=== PATIENT | female | born 1995 | race Caucasian/White ===

== ENCOUNTER 2022-09-07 13:16 | Inpatient (IN) ==
[2022-09-07] MEDS ORDERED: LIDOCAINE 1% LOCAL 20 ML VIAL INFIL PRN (13:27)
[2022-09-07] MEDS ORDERED: OXYTOCIN 30 UNITS/500 ML BAG IV PRN ×2 (13:27→17:09)
[2022-09-07] MEDS ORDERED: ceFAZolin 2000MG 2,000 MG/15 ML SYR IV ONE (13:45)
--- NOTE | 2022-09-07 14:08 | History & Physical Report ---
Date of Service September 07, 2022 Assessment & Plan (1) Supervision of normal intrauterine in primigravida: Plan: IUP at term in active labor GBS (+) and PCN allergic (rash) will treat with Ancef for GBS prophylaxis epidural when requested anticipate vaginal Admission and Anticipated Discharge Date Admission Date: September 07, 2022 History of Present Illness Primary Care Provider: NO PCP Patient is a 26 yo female EDC 09/08/22 who presents at 39 6/7 weeks in active labor. (-) SPROM, contractions are getting stronger. GBS (+). otherwise uncomplicated. Allergies Allergy/AdvReac Type Severity Reaction Status Date / Time amoxicillin Allergy Mild Rash Verified 09/07/22 12:55 Home Medications Medication Instructions Recorded Confirmed Type prenat.vits,agustín,rbj-[id number]-hpddy 1 tab PO DAILY 01/26/22 09/07/22 History Patient History Medical History Pelvis fracture at 13 years old on the dance team Surgical History S/P tonsillectomy Family History Grandfather (Maternal) Alzheimer disease Social History Smoking Status: Never smoker Hx Alcohol Use: No Hx Substance Use: No Preferred Language: [place] Communication Ability: Effective Director Project Management Required: No Beliefs That Will Affect Care: None marital status: marital status details: Kenneth (30) [phone] Current Living Situation: Spouse Current Living Situation Comment: lives with spouse, 2 dogs. current occupational status: employed current occupation: Teacher Other Information That Helps Us Care for You: No Assistive Devices: None Review of Systems All systems reviewed & are unremarkable except as noted in HPI & below Physical Exam Constitutional: WD/WN, vitals as above Psychiatric: A+Ox3, euthymic affect Genitourinary: OB Exam Abdomen: + vertex and + regular contractions ( Q4-5 minutes moderated) Manual OB Exam: + cervical dilation 6 cm, + cervical effacement 100% and + station 0 OB Exam Monitor Tracing: + external FHT monitor used, + external uterine monitor used, + category I and + normal FHT variability Results & Data Vital Signs (Past 12 Hours) Vital Signs Temp Pulse Resp BP 09/07/22 13:38 98.2 F 20 09/07/22 13:41 83 138/87 09/07/22 13:25 83 141/87 H Code Status & VTE Plan VTE Prophylaxis Plan VTE Prophylaxis will be ordered: No Coding Level of Care Code None Diagnoses Supervision of normal intrauterine in primigravida Z34.00
[2022-09-07] MEDS: LACTATED RINGER'S 1,000 ML IV PRN ×2 (14:14→16:54)
[2022-09-07] MEDS ORDERED: SODIUM CHLORIDE 0.9% PF INJ 10 ML VIAL ONE (14:20)
[2022-09-07] MEDS ORDERED: LIDOCAINE 2%/EPINEPHRINE 1:200,000 20 ML PF ONE (14:20)
[2022-09-07] MEDS ORDERED: BUPIVACAINE 0.25% PF 30 ML VIAL ONE (14:20)
[2022-09-07] MEDS ORDERED: fentaNYL citrate PF 100 MCG/2 ML VIAL ONE (14:20)
[2022-09-07] MEDS ORDERED: ePHEDrine sulfate 50 MG/ML AMP ONE (14:20)
[2022-09-07] MEDS ORDERED: fentaNYL 2MCG/ML ROPIVACAINE 1.25MG/ML 100 ML BAG EPI ONE (14:21)
[2022-09-07 14:35] LABS: Hematocrit (blood only) 30.7 % (37.0-47.0); Hemoglobin 9.9 g/dl (12.0-16.0); Mean Corpuscular Hemoglobin 28.2 pg (25.0-34.0); Mean Corpuscular Hgb Conc 32.2 g/dL (32.0-36.0); Mean Corpuscular Volume 87.5 fL (80.0-100.0); Mean Platelet Volume 12.2 fL (9.4-12.4); Platelet Count 132 K/uL (130-400); RDW Standard Deviation 44.4 fL (36.4-46.3); Red Blood Count 3.51 M/uL (4.20-5.40); White Blood Count 9.87 K/ul (4.8-10.8)
[2022-09-07] MEDS ORDERED: fentaNYL 2MCG/ML ROPIVACAINE 1.25MG/ML 100 ML BAG EPI PRN (16:33)
[2022-09-07] MEDS ORDERED: NALOXONE HCL 0.4 MG/1 ML VIAL/CARP IV PRN (16:33)
[2022-09-07] MEDS ORDERED: NALBUPHINE HCL INJ 10 MG/ML AMP IV PRN (16:33)
[2022-09-07] MEDS ORDERED: diphenhydrAMINE 50 MG/ML VIAL IV PRN (16:33)
[2022-09-07] MEDS ORDERED: PROMETHAZINE HCL 6.25 MG in SODIUM CHLORIDE 0.9% 50 ML IV PRN (16:33)
[2022-09-07] MEDS ORDERED: NALOXONE HCL 1 MG in SODIUM CHLORIDE 0.9% 1000ML 1,000 ML IV PRN (16:33)
[2022-09-07] MEDS ORDERED: ONDANSETRON INJ 2 MG/ML 2 ML VIAL IV PRN (16:33)
[2022-09-07] MEDS ORDERED: ePHEDrine sulfate 50 MG/ML AMP IV PRN (16:33)
--- NOTE | 2022-09-07 16:33 | Anesthesiology Consultation ---
Date of Service September 07, 2022 Assessment & Plan Chart Review Chart Review: Patient NOT seen in Pre Admission Testing and Acceptable Risk for Labor Epidural Consults Requested none ASA ASA2 Proposed Anesthesia Anesthesia Type: Labor Epidural Risk / Benefits Reviewed With: PT / POA / Parent / Guardian, Accepts Plan and Informed Consent Obtained History Height/Weight Height: 5 ft 7 in Weight: 81.193 kg Allergies Allergy/AdvReac Type Severity Reaction Status Date / Time amoxicillin Allergy Mild Rash Verified 09/07/22 12:55 Medications Home Medications Medication Instructions Recorded Confirmed Last Taken prenat.vits,agustín,yvg-ylzl-ssfkv 1 tab PO DAILY 01/26/22 09/07/22 09/06/22 22:00 Active Medications Generic Name Dose Route Start Last Admin Trade Name Freq PRN Reason Stop Dose Admin Lactated Ringer's 1,000 mls @ 125 mls/hr 09/07/22 13:27 09/07/22 15:10 Lr IV 09/09/22 13:26 125 mls/hr .Q8H PRN Infusion L&D Protocol Protocol Past Medical History Medical History Pelvis fracture at 13 years old on the dance team Exercise / Class Metabolic Activity II 4-5 Yardwork/Stairs/Walk up hill Past Family History Family History Grandfather (Maternal) Alzheimer disease Past Surgical History Surgical History S/P tonsillectomy Past Anesthesia History No Hx of Anesthesia Complications and No Family Hx of Anesthesia Complications History of PONV No Hx of PONV and No Hx of Motion Sickness Social History Smoking Status: Never smoker Hx Alcohol Use: No Hx Substance Use: No Physical Exam Vital Signs Last Vital Signs Temp 36.7 C 09/07/22 15:00 Pulse 85 09/07/22 16:28 Resp 18 09/07/22 15:10 BP 133/72 09/07/22 16:20 Pulse Ox 98 09/07/22 16:28 ENMT Mouth: no dentition abnormality Thyromental Distance: > or= 3.5 Finger Breadths Mallampati Class: II Neck normal visual inspection Respiratory normal respiratory effort Auscultation: lungs clear to auscultation bilaterally Cardiovascular Rate/Rhythm: regular rate and regular rhythm Psychiatric Orientation: alert Testing Laboratory Results 09/07/22 14:04
[2022-09-07] MEDS ORDERED: NURSING L&D Epidural Breakthrough Pain Update ONE (22:08)
[2022-09-07] MEDS ORDERED: ceFAZolin 1000MG 1,000 MG/7.5 ML SYR IV PRN (22:15)
[2022-09-08] MEDS ORDERED: LIDOCAINE 2% MPF LOCAL 5 ML VIAL ONE (00:22)
[2022-09-08] MEDS: LACTATED RINGER'S 1,000 ML IV PRN (00:26)
[2022-09-08] MEDS ORDERED: OXYTOCIN 30 UNITS/500 ML BAG IV PRN (04:54)
[2022-09-08] MEDS ORDERED: DIPHTHERIA/TETANUS/PERTUSSIS 0.5mL SYR/VIAL (Age 7+yrs) IM ONE (04:54)
[2022-09-08] MEDS ORDERED: BENZOCAINE 20% AER SPR 82.5 GM CAN EXT PRN (04:54)
[2022-09-08] MEDS ORDERED: HYDROCORTISONE ACETATE 25 MG SUPP PR PRN (04:54)
[2022-09-08] MEDS ORDERED: oxyCODONE/ACETAMINOPHEN 5mg/325mg TAB PO PRN (04:54)
[2022-09-08] MEDS ORDERED: miSOPROStoL 200 MCG TAB PR ONE (04:54)
--- NOTE | 2022-09-08 05:04 | Delivery Summary ---
Vaginal Delivery Summary Date of Service September 08, 2022 Vaginal Delivery Summary VAVD and 1st Degree LAC Patient is a 26-year-old 1 P0 female EDC 09/08/2022 who presented in active labor. She received effective epidural analgesia and shortly after, membranes ruptured spontaneously for thin meconium stained fluid. She did require Pitocin augmentation of her labor. She progressed to full dilation with the urge to push. She was pushing effectively but after 2-1/2 hours she was no longer making significant progress because of maternal exhaustion. The vertex was now at +2 station with caput. Vacuum assistance was offered to the patient and she accepted. After bladder was emptied using sterile technique for small amount of urine, the vacuum was applied through 3 contractions at which time the vacuum popped off. The head was at this point , and she pushed through several more contractions prior to reapplying the vacuum. Through 1 contraction the head was delivered in the occiput anterior presentation. The rest of the then delivered easily without maternal effort. The female infant was then placed on the mother's abdomen for further attention and drying. She was vigorous and moving all 4 limbs. After 1 minute the cord was clamped and cut. After cord blood was obtained, the placenta was expressed intact with a three-vessel cord. bleeding was controlled with fundal massage and dilute Pitocin. However there continued a steady trickle of bleeding and 800 mcg of Cytotec were placed rectally. At this point the bleeding was minimal. A first-degree vaginal laceration was repaired with 3-0 chromic in the usual fashion. Bilateral labial abrasions were not bleeding and therefore not repaired. Estimated blood loss was 650 cc. Mother and infant were doing well after delivery. [facility] [place] Vaginal Delivery Charge Delivery Type Details: VAVD and 1st Degree LAC
[2022-09-08 07:26] LABS: Hematocrit (blood only) 24.7 % (37.0-47.0); Hemoglobin 8.1 g/dl (12.0-16.0)
--- NOTE | 2022-09-08 07:52 | Anesthesia Procedure Note ---
Date of Service September 08, 2022 Anesthesia Post Epidural Note Vital Signs Vital Signs: Temp Pulse Resp BP Pulse Ox 36.9 C 93 H 20 118/64 93 09/08/22 07:15 09/08/22 07:17 09/08/22 07:15 09/08/22 07:17 09/08/22 04:26 Pain Intensity Bilateral Abdomen: Pain Intensity: 8 Notes Mental Status: alert / awake / arousable and participated in evaluation Nausea / Vomiting: adequately controlled Pain: adequately controlled Airway Patency, RR, SpO2: stable & adequate BP & HR: stable & adequate Hydration State: stable & adequate Neuraxial Anesthesia: was administered and sensory block is resolving Anesthetic Complications: no major complications apparent and Pt Satisfied with anesthetic care Epidural: Removed without complications and With tip intact
[2022-09-08] MEDS: DOCUSATE SODIUM 100 MG CAP PO SCH ×2 (10:07→20:37)
[2022-09-08] MEDS: IBUPROFEN 600 MG TAB PO PRN ×2 (10:07→17:00)
[2022-09-08] MEDS: PRENATAL VITAMIN 1 TAB PO SCH (10:07)
[2022-09-08] MEDS: FERROUS SULFATE 325 MG TAB PO SCH (10:07)
[2022-09-08] MEDS: ACETAMINOPHEN 325 MG TAB PO PRN ×2 (13:15→20:36)
[2022-09-09] MEDS: IBUPROFEN 600 MG TAB PO PRN ×3 (05:30→16:56)
--- NOTE | 2022-09-09 05:47 | Obstetrical Progress Note ---
Date of Service <Rafaela HuiDO - Last Filed: 09/09/22 06:34> September 09, 2022 Assessment & Plan <Rafaela HuiDO - Last Filed: 09/09/22 06:34> (1) Status post vaginal delivery: Feels well today. Eating well, voiding well, ambulating well. - Routine care -- OOB, ambulation, diet progression as tolerated - After discharge will have 6 week follow-up - repeat hemoglobin 09/09= 6.5 <Maame Miller MD, FACOG - Last Filed: 09/09/22 07:16> (1) Status post vaginal delivery: Subjective <Rafaela HuiDO - Last Filed: 09/09/22 06:34> Fadumo is a 26 y/o female who is now PPD # 1 following vaginal delivery at 40 weeks. Reports feeling well overall this morning. Mild abdominal cramping, pain well managed on analgesics. Voiding. Tolerating meals overnight and able to ambulate some. Some persistent lochia with some improvement this morning. Breast feeding. States that she had one episode of lightheadedness while she was up walking yes terday evening, has been feeling ok since. Review of Systems Denies fever, chills, sweats Denies shortness of breath, difficulty breathing, chest pain, palpitations, chest pressure. Denies breast pain. Denies dysuria. Denies headache or changes in vision. Physical Exam <Rafaela HuiDO - Last Filed: 09/09/22 06:34> General: Alert, oriented. No acute distress. Cardiac: Regular rate and rhythm, no murmurs/rubs/gallops. Respiratory: Clear to auscultation bilaterally a/p, no wheezes/rales/rhonchi. No increased work of breathing. Symmetrical chest rise. No respiratory distress. Abdomen: Soft, nontender, nondistended. Uterus: Uterine fundus firm, palpable 2 cm below umbilicus. Lower Extremities: No lower extremity edema or swelling. No deep calf pain. Results & Data <Rafaela HuiDO - Last Filed: 09/09/22 06:34> Vital Signs (Past 12 Hours) Vital Signs Temp Pulse Resp BP Pulse Ox O2 Del Method 09/09/22 03:00 36.9 C 89 18 123/74 Room Air 03/29/23 23:00 37.5 C 89 18 119/76 Room Air 09/08/22 19:40 36.8 C 90 18 136/77 Room Air 09/08/22 18:30 37.4 C 90 16 121/72 98 Room Air <Maame Miller MD, FACOG - Last Filed: 09/09/22 07:16> Co-Signing Physician Notes Resident Physician Supervision Note: I interviewed and examined the patient. Discussed with Dr. Hui and agree with findings and plan as documented in the note. Any exceptions or clarifications are listed here: Doing well overall. However, her hgb this am is 6.5. Patient did minimal ambulating yesterday. After her shower, she felt a little tired. She notes she has not felt dizzy or lightheaded. Encouraged ambulation today and will see if she tolerates or needs transfusion. Probable d/c tomorrow. Documented By: Maame Miller MD, FACOG Resident Activity Tracking <Rafaela Hui, DO - Last Filed: 09/09/22 06:34> Resident Involvement: Resident Care Provided Care Provided: OB Delivery (post )
[2022-09-09 06:32] LABS: Hematocrit (blood only) 19.8 % (37.0-47.0); Hemoglobin 6.5 g/dl (12.0-16.0); Mean Corpuscular Hemoglobin 28.5 pg (25.0-34.0); Mean Corpuscular Hgb Conc 32.8 g/dL (32.0-36.0); Mean Corpuscular Volume 86.8 fL (80.0-100.0); Platelet Count 110 K/uL (130-400); RDW Coefficient of Variation 14.5 % (11.5-14.5); RDW Standard Deviation 45.4 fL (36.4-46.3); Red Blood Count 2.28 M/uL (4.20-5.40); White Blood Count 14.06 K/ul (4.8-10.8)
[2022-09-09] MEDS: PRENATAL VITAMIN 1 TAB PO SCH (09:37)
[2022-09-09] MEDS: FERROUS SULFATE 325 MG TAB PO SCH (09:38)
[2022-09-09] MEDS: DOCUSATE SODIUM 100 MG CAP PO SCH ×2 (09:38→22:11)
[2022-09-09] MEDS ORDERED: bisacodyL 5 MG TABEC PO SCH (20:00)
[2022-09-10] MEDS ORDERED: bisacodyL 10 MG SUPP PR PRN (04:54)
--- NOTE | 2022-09-10 05:18 | Obstetrical Progress Note ---
Date of Service <Rafaela HuiDO - Last Filed: 09/10/22 06:20> September 10, 2022 Assessment & Plan <Rafaela HuiDO - Last Filed: 09/10/22 06:20> (1) Status post vaginal delivery: Feels well today. Eating well, voiding well, ambulating well. - Routine care --OOB, ambulation, diet progression as tolerated - After discharge will have 6 week follow-up -Hemoglobin= 6.5 yesterday; repeat pending <Ansley eTjada MD - Last Filed: 09/10/22 06:53> (1) Status post vaginal delivery: Subjective <Rafaela HuiDO - Last Filed: 09/10/22 06:20> Fadumo is a 26 y/o female who is now PPD # 2 following vaginal delivery at 40 weeks. Reports feeling well overall this morning. Mild abdominal cramping, pain well managed on analgesics. Voiding. Tolerating meals overnight and able to ambulate some. Some persistent lochia with some improvement this morning. Breast feeding. Denies lightheadedness, dizziness. Review of Systems Denies fever, chills, sweats Denies shortness of breath, difficulty breathing, chest pain, palpitations, chest pressure. Denies breast pain. Denies dysuria. Denies headache or changes in vision. Physical Exam <Rafaela HuiDO - Last Filed: 09/10/22 06:20> General: Alert, oriented. No acute distress. Cardiac: Regular rate and rhythm, no murmurs/rubs/gallops. Respiratory: Clear to auscultation bilaterally a/p, no wheezes/rales/rhonchi. No increased work of breathing. Symmetrical chest rise. No respiratory distress. Abdomen: Soft, nontender, nondistended. Uterus: Uterine fundus firm, palpable 2 cm below umbilicus. Lower Extremities: No lower extremity edema or swelling. No deep calf pain. Results & Data <Rafaela SDarnell Hui DO - Last Filed: 09/10/22 06:20> Vital Signs (Past 12 Hours) Vital Signs Temp Pulse Resp BP Pulse Ox O2 Del Method 09/09/22 23:45 36.6 C 67 18 138/83 99 Room Air 09/09/22 19:11 36.8 C 83 18 115/72 99 Room Air <Ansley Tejada MD - Last Filed: 09/10/22 06:53> Co-Signing Physician Notes Resident Physician Supervision Note: I interviewed and examined the patient. Discussed with Dr. Hui and agree with findings and plan as documented in the note. Any exceptions or clarifications are listed here: Hgb yesterday 6.5, repeat this morning pending, but pulse currently 67 and patient ambulating without symptoms of anemia, so likely stable to go home and continue iron supplementation. Documented By: Ansley Tejada MD, FACOG Resident Activity Tracking <Rafaela Hui, - Last Filed: 09/10/22 06:20> Resident Involvement: Resident Care Provided Care Provided: OB Delivery (post )
[2022-09-10 07:38] LABS: Hematocrit (blood only) 20.2 % (37.0-47.0); Hemoglobin 6.3 g/dl (12.0-16.0)
[2022-09-10] MEDS: IBUPROFEN 600 MG TAB PO PRN (08:08)
[2022-09-10] MEDS: FERROUS SULFATE 325 MG TAB PO SCH (08:08)
[2022-09-10] MEDS: PRENATAL VITAMIN 1 TAB PO SCH (08:08)
[2022-09-10] MEDS: DOCUSATE SODIUM 100 MG CAP PO SCH (08:08)
== END 2022-09-10 13:25 | disposition home or self-care (01) | DRG 807 ==
LOC: 4S1 13:16 → 4E2 09-08 08:43